=== PATIENT | male | born 1995 | race Caucasian/White ===

== ENCOUNTER 2016-08-17 10:53 | Emergency (ER) | payer SELFPAY ==
[2016-08-17 11:07] VITALS: O2SAT 95
[2016-08-17] MEDS ORDERED: POVIDONE IODINE 10 % 15 ML UD TOP ONE (11:08)
[2016-08-17] MEDS ORDERED: LIDOCAINE 1% 10 ML VIAL INJ ONE (11:08)
[2016-08-17] MEDS ORDERED: CHLORHEXIDINE GLUCONATE 4 % 15 ML UD TOP ONE ×2 (11:16→11:43)
--- NOTE | 2016-08-17 12:07 | ED.PDOC ---
History of Present Illness - General Chief Complaint: Laceration Stated Complaint: laceration L hand Time Seen by Provider: 08/17/16 12:04 Source: patient Exam Limitations: no limitations - History of Present Illness Initial Comments: Patient presents with a laceration on his left palm from a drill. He is able to move and feel all fingers as well as the palm. No previous injury to that hand. Claims to have had a tetanus shot in the last 5 years. Timing/Duration: 1 hour Severity: mild Improving Factors: rest Worsening Factors: movement Associated Symptoms: denies symptoms Allergies/Adverse Reactions: Allergies NO KNOWN ALLERGY Allergy (Verified 08/17/16 11:02) Home Medications: Ambulatory Orders NK [NK] 08/17/16 Review of Systems - Review of Systems Constitutional: States: no symptoms reported EENTM: States: no symptoms reported Respiratory: States: no symptoms reported Cardiology: States: no symptoms reported Gastrointestinal/Abdominal: States: no symptoms reported Genitourinary: States: no symptoms reported Musculoskeletal: States: no symptoms reported Skin: States: see HPI Neurological: States: no symptoms reported Endocrine: States: no symptoms reported Hematologic/Lymphatic: States: no symptoms reported Past Medical History (General) - Patient Medical History Hx Stroke: No Hx Congestive Heart Failure: No Hx Diabetes: No Surgical History: no surgical history - Vaccination History Hx Tetanus, Diphtheria Vaccination: Yes Hx Influenza Vaccination: Yes - 2016 Hx Pneumococcal Vaccination: Yes - Social History Hx Tobacco Use: Yes Family Medical History - Family History Father Living Status: Still Living Hx Family Hypertension: Yes Physical Exam - Physical Exam General Appearance: Alert Respiratory: lungs clear Cardiovascular/Chest: normal peripheral pulses, regular rate, rhythm Extremity: other - Patient has full sensation over entire left hand. Has 5/5 strength to flexion and extension of the fingers and wrist. 5/5 strength to adduction and abduction of the fingers of the left hand. There is an 8 cm jagged laceration that is 0.5 cm deep. It is hemostatic upon presentation. Neurologic: no motor/sensory deficits Skin Exam: other - see extremities section Progress - Progress Progress: 08/17/16 12:09 Area was prepped and draped in a sterile fashion. 10 cc of lidocaine without epinephrine was used to gain local anesthesia and the wound was irrigated with 60 cc sterile NS. An additional 5 cc of lidocaine without epinephrine was used to gain good local anesthesia. 9 interrupted sutures with 4-0 proline were placed. Patient tolerated procedure well. The area was clean, dry, and hemostatic upon completion of the procedure. Departure - Departure Clinical Impression: Laceration Disposition: Discharge to Home or Self Care Condition: Good Departure Forms: ED Discharge - Pt. Copy, Patient Portal Self Enrollment Diet: resume usual diet Activity: other - Do not use the left hand for 10 days. Home Medications: Ambulatory Orders NK [NK] 08/17/16 Additional Instructions: Do not use the left hand for ten days. Return to the ER or to your regular doctor in 10 days for removal of the stitches. Apply topical antibiotic to the wound twice per day for the first three days. Keep the area clean. Keep it wrapped for the first three days.
[2016-08-17 13:16] VITALS: BP 143/88; TEMP 97.8
== END 2016-08-17 12:20 | disposition home or self-care (01) ==
LOC: ER 10:53
DX: S61.412A Laceration without foreign body of left hand, initial encounter (principal); W29.8XXA Contact with other powered hand tools and household machinery, initial encounter